=== PATIENT | male | born 1970 | race Caucasian/White ===

== ENCOUNTER 2016-11-23 02:43 | Observation (INO) | payer OTHER ==
[~2016-11-23] VITALS: Ht 167.6 cm; Wt 97.5 kg
[2016-11-23] MEDS ORDERED: NITROGLYCERIN OINT 2% 1GM PACKET EXT ONE ×2 (03:00→06:15)
[2016-11-23] MEDS ORDERED: SODIUM CHLORIDE 0.9% 1000ML 1,000 ML IV ONE (03:00)
[2016-11-23 03:05] LABS: BASO % 0.3 %; BASO ABS # 0.02 K/uL (0-0.2); COMPLETE YES; EOS % 1.2 %; HEMATOCRIT 38.2 % (42-52); IG% 0.4 %; LYMPH ABS # 2.08 K/uL (1.2-3.4); MEAN CELL VOLUME 87.8 fL (80-100); MEAN CORPUSCULAR HEMOGLOBIN 31.3 pg (25-34); MEAN CORPUSCULAR HGB CONC 35.6 g/dl (32-36); MEAN PLATELET VOLUME 10.1 fL (7.4-10.4); MONO % 7.3 %; NEUT % 62.8 %; PLATELET COUNT 280 K/uL (130-400); RED BLOOD COUNT 4.35 M/uL (4.7-6.1); WHITE BLOOD COUNT 7.43 K/uL (4.8-10.8)
[2016-11-23 03:14] LABS: POINT OF CARE TROPONIN I < 0.030 ng/ml (0-0.045)
[2016-11-23 03:25] LABS: BUN/CREATININE RATIO 10.7 (10-20); CALCIUM 8.1 mg/dl (8.5-10.1); CREATININE 0.87 mg/dl (0.60-1.40); POTASSIUM 3.5 mmol/L (3.5-5.1); PROTHROMBIN TIME (PATIENT) 10.7 SECONDS (9.0-12.0)
[2016-11-23 03:36] LABS: ALB/GLOB RATIO 0.9 (0.9-2); CKMB/CK RATIO 0.7 (0-3.0); THYROID STIMULATING HORMONE 4.23 uIu/ml (0.300-4.500)
[2016-11-23] MEDS ORDERED: LISI-461 PO (04:08)
[2016-11-23] MEDS ORDERED: ATOR-22 PO (04:08)
[2016-11-23] MEDS ORDERED: MoRPHine SULFATE 2 MG/ML CARP IV PRN (04:45)
[2016-11-23] MEDS ORDERED: NITROGLYCERIN 0.4 MG SL PER TAB CHARGE SL PRN (04:45)
[2016-11-23] MEDS ORDERED: ALUMINUM/MAGNESIUM/SIMETH (MAALOX MAX) 30 ML UDC PO PRN (04:45)
[2016-11-23] MEDS ORDERED: ACETAMINOPHEN 325 MG TAB PO PRN (04:45)
[2016-11-23] MEDS ORDERED: ONDANSETRON INJ 2 MG/ML 2 ML VIAL IV PRN (04:45)
[2016-11-23] MEDS ORDERED: ZOLPIDEM TARTRATE 5 MG TAB PO PRN (04:45)
[2016-11-23] MEDS ORDERED: POLYETHYLENE (MIRALAX) 17 GM PACK PO PRN (04:45)
[2016-11-23] MEDS ORDERED: MAGNESIUM HYDROXIDE SUSP 30 ML UDC PO PRN (04:45)
[2016-11-23] MEDS ORDERED: IV FLUIDS COMPLETED PRN (05:15)
[2016-11-23 06:10] VITALS: BP 123/72; PULSE 54; TEMP 36.8; O2SAT 95; Ht 167.6 cm; Wt 97.5 kg
--- NOTE | 2016-11-23 06:28 | DIAGNOSTIC IMAGING REPORT ---
CHEST 2 VIEWS ROUTINE CLINICAL HISTORY: Chest pain dyspnea COMPARISON STUDY: No previous studies for comparison. FINDINGS: The bones soft tissues and hemidiaphragms are normal. The cardiomediastinal silhouette is normal. The lungs are clear. The pulmonary vasculature is normal. IMPRESSION: Negative chest. The above report was generated using voice recognition software. It may contain grammatical, syntax or spelling errors. Electronically signed by: Uvaldo Rivera M.D. 11/23/2016 6:27 AM Dictated Date/Time: 11/23/2016 6:27 AM
--- NOTE | 2016-11-23 06:42 | EMERGENCY ROOM VISIT NOTE ---
History First contact with patient: 02:48 Chief Complaint: CHEST PAIN Stated Complaint: CHEST PAIN Nursing Triage Summary: pt brought to main ED from home by ALS. pt reports chest pain/tightness for ~2 hours, reports he got "overheated" and felt some nausea with onset but nausea has resolved at this time. denies sob/cough or recent illness. hx of htn and elevated cholesterol. pt given nitro x3 and [facility] preshopital. pt reports his pain began at 7/10 and has decreased to 3/10 with medication. ALS reports pt's blood pressure decreased with medication. upon assessment, pt alert and oriented x4. breathing regularly and independently. skin warm and dry, color WNL. History of Present Illness The patient is a 46 year old male who presents to the Emergency Room with complaints of central and left-sided chest pain that began about 2 hours prior to arrival. The patient states that he initially had a sharp stabbing sensation in his chest but this became much more severe and turned into a heaviness or tightness. His pain did not radiate, and he rates it a 7/10 at worst. The patient states that he felt very hot and nauseated, and walked over to the air conditioner to cool off. The patient became concerned as his father has an extensive cardiac history including multivessel bypass and multiple MIs. The patient contacted EMS, and the patient has been provided aspirin and nitroglycerin prehospital. Evidently the patient's third dose of nitroglycerin significantly improved his discomfort down to a 3/10. The patient himself has a known history of dyslipidemia and hypertension. He admits that he does not take his medication on a daily basis. He has not had recent fever or chills. No recent travel history. He does not have other complaints. Review of Systems More than 10 systems were reviewed and otherwise negative with the exception of history of present illness. Past Medical/Surgical History Medical Problems: (1) Chest pain Family History Family history of cardiac disease, diabetes, dyslipidemia Social History Smoking Status: Never Smoker Occupation Status: employed (founder and chief executive officer) Current/Historical Medications Scheduled Atorvastatin (Lipitor), 20 MG PO DAILY Lisinopril (Lisinopril), 10 MG PO DAILY Physical Exam Vital Signs Date Time Temp Pulse Resp B/P (MAP) Pulse Ox O2 Delivery O2 Flow Rate FiO2 11/23/16 04:14 64 18 123/83 Room Air 11/23/16 03:45 66 18 130/84 96 Room Air 11/23/16 02:48 36.4 76 18 131/93 94 Room Air 11/23/16 02:48 69 11/23/16 02:48 94 Room Air 11/23/16 02:48 94 Room Air Pain Rating (0-10): 0 Physical Exam VITALS: Vitals are noted on the nurse's note and reviewed by myself. Vital signs stable. GENERAL: Well-developed, well-nourished, white male, who is in no acute distress and resting comfortably. Patient is cooperative with the examination. HEAD: Normocephalic atraumatic. EARS: External ear normal. External auditory canals clear, tympanic membranes pearly orantes without erythema or effusion bilaterally. EYES: Pupils equal round and reactive to light and accommodation. Conjunctivae without injection, sclerae without icterus. Extraocular movements intact. NOSE: Patent, turbinates without inflammation or discharge. MOUTH: Mucous membranes moist. Tonsils are not enlarged. Pharynx without erythema, blood, or exudate. Uvula midline. Airway patent. NECK: Supple without nuchal rigidity. No lymphadenopathy. No thyromegaly. Cervical spine is nontender. HEART: Regular rate and rhythm without murmurs gallops or rubs. LUNGS: Clear to auscultation bilaterally without wheezes, rales or rhonchi. No retractions or accessory muscle use. CHEST: No reproducible chest wall tenderness. No rash or lesions. ABDOMEN: Positive normal bowel sounds x 4. Soft, nontender, without masses or organomegaly. No guarding or rebound tenderness. MUSCULOSKELETAL: No muscle atrophy, erythema, or edema noted. Full range of motion without joint tenderness in all extremities. NEURO: Patient was alert and oriented to person place and time. CN II through XII grossly intact. Medical Decision & Procedures ER Provider Diagnostic Interpretation: CHEST 2 VIEWS ROUTINE CLINICAL HISTORY: Chest pain dyspnea COMPARISON STUDY: No previous studies for comparison. FINDINGS: The bones soft tissues and hemidiaphragms are normal. The cardiomediastinal silhouette is normal. The lungs are clear. The pulmonary vasculature is normal. IMPRESSION: Negative chest. Laboratory Results 11/23/16 02:45 Red Blood Count 4.35, Mean Corpuscular Volume 87.8, Mean Corpuscular Hemoglobin 31.3, Mean Corpuscular Hemoglobin Concent 35.6, Mean Platelet Volume 10.1, Neutrophils (%) (Auto) 62.8, Lymphocytes (%) (Auto) 28.0, Monocytes (%) (Auto) 7.3, Eosinophils (%) (Auto) 1.2, Basophils (%) (Auto) 0.3, Neutrophils # (Auto) 4.67, Lymphocytes # (Auto) 2.08, Monocytes # (Auto) 0.54, Eosinophils # (Auto) 0.09, Basophils # (Auto) 0.02 11/23/16 02:45 Test 11/23/16 02:45 11/23/16 02:55 11/23/16 02:57 White Blood Count 7.43 K/uL (4.8-10.8) Red Blood Count 4.35 M/uL (4.7-6.1) Hemoglobin 13.6 g/dL (14.0-18.0) Hematocrit 38.2 % (42-52) Mean Corpuscular Volume 87.8 fL (80-100) Mean Corpuscular Hemoglobin 31.3 pg (25-34) Mean Corpuscular Hemoglobin Concent 35.6 g/dl (32-36) Platelet Count 280 K/uL (130-400) Mean Platelet Volume 10.1 fL (7.4-10.4) Neutrophils (%) (Auto) 62.8 % Lymphocytes (%) (Auto) 28.0 % Monocytes (%) (Auto) 7.3 % Eosinophils (%) (Auto) 1.2 % Basophils (%) (Auto) 0.3 % Neutrophils # (Auto) 4.67 K/uL (1.4-6.5) Lymphocytes # (Auto) 2.08 K/uL (1.2-3.4) Monocytes # (Auto) 0.54 K/uL (0.11-0.59) Eosinophils # (Auto) 0.09 K/uL (0-0.5) Basophils # (Auto) 0.02 K/uL (0-0.2) RDW Standard Deviation 39.9 fL (36.4-46.3) RDW Coefficient of Variation 12.4 % (11.5-14.5) Immature Granulocyte % (Auto) 0.4 % Immature Granulocyte # (Auto) 0.03 K/uL (0.00-0.02) Prothrombin Time 10.7 SECONDS (9.0-12.0) Prothromb Time International Ratio 1.0 (0.9-1.1) Activated Partial Thromboplast Time 26.9 SECONDS (21.0-31.0) Partial Thromboplastin Ratio 1.0 Anion Gap 8.0 mmol/L (3-11) Est Creatinine Clear Calc Drug Dose 115.6 ml/min Estimated GFR () 120.0 Estimated GFR (Non- 103.5 BUN/Creatinine Ratio 10.7 (10-20) Calcium Level 8.1 mg/dl (8.5-10.1) Total Bilirubin 0.5 mg/dl (0.2-1) Aspartate Amino Transf (AST/SGOT) 24 U/L (15-37) Alanine Aminotransferase (ALT/SGPT) 42 U/L (12-78) Alkaline Phosphatase 91 U/L (45-117) Total Creatine Kinase 102 U/L (39-308) Creatine Kinase MB 0.7 ng/ml (0.5-3.6) Creatine Kinase MB Ratio 0.7 (0-3.0) Total Protein 7.2 gm/dl (6.4-8.2) Albumin 3.5 gm/dl (3.4-5.0) Globulin 3.7 gm/dl (2.5-4.0) Albumin/Globulin Ratio 0.9 (0.9-2) Lipase 154 U/L (73-393) Thyroid Stimulating Hormone (TSH) 4.230 uIu/ml (0.300-4.500) Bedside D-Dimer 317 ng/mlFEU (0-450) Bedside Troponin I < 0.030 ng/ml (0-0.045) Medications Administered Medications (Trade) Dose Ordered Sig/Afshan Route Start Time Stop Time Status Last Admin Dose Admin Nitroglycerin (Nitroglycerin 2% Oint) 1 inch NOW ONCE EXT 11/23/16 03:00 11/23/16 03:01 DC 11/23/16 03:10 1 INCH Sodium Chloride 1,000 ml @ 999 mls/hr Q1H1M ONCE IV 11/23/16 03:00 11/23/16 04:00 DC 11/23/16 03:11 999 MLS/HR ECG Change: Normal sinus rhythm @74bpm Normal ECG No previous ECGs available ED Course Physical exam and history were performed. Nursing notes, EMR, and Medication List were personally reviewed. Patient appears to have chest pain symptoms that began about 2 hours ago. His symptoms did seem to improve with aspirin and nitroglycerin prehospital. IV access was established and labs were obtained. EKG is as above and was normal sinus rhythm without acute ST elevation. Chest x-ray was performed. Nitroglycerin paste was placed. The patient was placed on a machine operator packaging. The patient's blood work is as above and was reviewed. He does not have significantly elevated white blood cell count, gross anemia, bandemia, or significant electrolyte imbalance. Lipase and transaminases are nondiagnostic. Troponin and d-dimer 1 are both negative. The patient remained in normal sinus rhythm while on the machine operator packaging. His chest x-ray does not show acute findings. Overall the patient does not appear stable for discharge home. His family history is quite condemning and he did have relief of his chest pain with nitroglycerin. The case was discussed with the on-call hospitalist who agreed to evaluate the patient here in the department. Please see their dictation for further patient course, plan, and disposition. The chart was completed utilizing [employer] Speech Voice Recognition Software. Grammatical errors, random word insertions, pronoun errors, and incomplete sentences are an occasional consequence of this system due to software limitations, ambient noise, and hardware issues. Any formal questions or concerns about the content, text, or information contained within the body of this dictation should be directly addressed to the provider for clarification. . Medical Decision Differential diagnosis includes, but is not limited to: Myocardial infarction, dysrhythmia, pericarditis, pneumothorax, aortic aneurysm/dissection, DVT/PE, anxiety, GERD, PUD, electrolyte imbalance, thyroid disorder, pneumonia, bronchitis, pancreatitis, and others Medication Reconcilliation Current Medication List: was personally reviewed by me Blood Pressure Screening Blood pressure disposition: Elevated BP felt to be situational Impression Primary Impression: Chest pain Departure Information Dispostion Home / Self-Care Condition FAIR Referrals No Doctor, Assigned (PCP) Forms HOME CARE DOCUMENTATION FORM, IMPORTANT VISIT INFORMATION Patient Instructions [facility] Problem Qualifiers Primary Impression: Chest pain Chest pain type: unspecified Qualified Codes: R07.9 - Chest pain, unspecified
--- NOTE | 2016-11-23 07:37 | HISTORY & PHYSICAL EXAMINATION ---
DATE OF ADMISSION: 11/23/2016 REASON FOR ADMISSION: Chest pain. HISTORY OF PRESENT ILLNESS: This is a 46-year-old male with a history of hypertension and hyperlipidemia. He developed central chest pain earlier in the morning. This was accompanied by nausea, diaphoresis and shortness of breath. He denies any vomiting or any radiation of the pain. The pain lasted several minutes and then recurred, at which point he decided to come to the hospital. The patient was relieved with sublingual NTG after 2 doses. Initial troponin and EKG are within normal limits. PAST MEDICAL HISTORY: 1. Hypertension. 2. Hyperlipidemia. 3. Ten years ago, the patient had a cardiac catheterization, which was normal. MEDICATIONS: 1. Lisinopril 10 mg daily. 2. Lipitor 20 mg daily. SOCIAL HISTORY: The patient does not drink or smoke. He works as a correctional office in a intermediate. FAMILY HISTORY: The patient's father had an [place] in his 60s. REVIEW OF SYSTEMS: GENERAL: No fevers or rigors described. CARDIOVASCULAR: Positive for chest pain as above. RESPIRATORY: Shortness of breath accompanying chest pain. GASTROINTESTINAL: Denies nausea, vomiting, constipation or diarrhea. All other systems reviewed and negative. PHYSICAL EXAMINATION: VITAL SIGNS: Blood pressure is 120/80, heart rate 64, respirations 16, afebrile, and satting 96% on room air. GENERAL: This is an overweight middle-aged male. He is awake, alert, and oriented x3, in no distress. HEAD AND NECK: No JVD, bruits, thrush or icterus. HEART: S1 and S2, regular. No audible murmurs. LUNGS: Clear to auscultation bilaterally. ABDOMEN: Nontender and nondistended. Bowel sounds are present. EXTREMITIES: Show no clubbing, cyanosis or edema. NEUROLOGICAL: He is ambulatory, maintains his coordination, and does not exhibit any focal deficits. SKIN: Negative for rashes or ulcers. LABORATORY DATA: White count 7.4, hemoglobin 13.6, and platelets 280. Sodium 142, potassium 3.5, chloride 108, CO2 of 26, BUN 9, creatinine 0.9, and glucose 108. Troponin less than 0.030. EKG normal sinus rhythm with no acute ST elevations or depressions. ASSESSMENT AND PLAN: This is a 46-year-old male with a history of hypertension, hyperlipidemia and a family history of CAD. He presents with central chest pain accompanied by shortness of breath, diaphoresis and nausea. The patient is admitted with the followin. Chest pain. The patient will be provided with NTG and/or morphine p.r.n. for chest pain. He has been placed on aspirin and low-dose Lovenox. He will be placed on an increased dose of statin. We will monitor him on telemetry and obtain serial cardia enzymes. A stress test can be scheduled as an inpatient or if his symptoms do not recur and his troponins and EKG remain unchanged, outpatient stress testing can be considered. 2. Hypertension. We will continue lisinopril as described. 3. Hyperlipidemia. We have increased the dose of statin as above. The patient is a full code. Total time for this admit including chart review, discussion with the ER physician, review of labs, imaging, EKG and available records, 28 minutes.
[2016-11-23 08:00] VITALS: O2SAT 95
[2016-11-23] MEDS ORDERED: ATORVASTATIN 40 MG TAB PO SCH (09:00)
[2016-11-23] MEDS: ENOXAPARIN 40 MG/0.4 ML SYR SC SCH ×2 (09:00→10:57)
[2016-11-23] MEDS ORDERED: ASPIRIN 325 MG ECTAB PO SCH (09:00)
[2016-11-23] MEDS ORDERED: LISINOPRIL 10 MG TAB PO SCH (09:00)
[2016-11-23] MEDS ORDERED: PERFLUTREN LIPID MICROSPHERE (DEFINITY) IV ONE (10:08)
[2016-11-23 11:05] VITALS: BP 137/87; PULSE 73; TEMP 36.7; O2SAT 95
--- NOTE | 2016-11-23 11:31 | Discharge Instructions ---
Discharge Instructions Date of Service Nov 23, 2016. Admission Reason for Admission: Chest Pain Discharge Discharge Diagnosis / Problem: Precordial chest pain Discharge Goals Goal(s): Decrease discomfort, Diagnostic testing Activity Recommendations Activity Limitations: resume your previous activity . Instructions / Follow-Up Instructions / Follow-Up You were admitted to the hospital because of chest pain, nausea, and diaphoresis - an acute cardiac event was ruled out through negative cardiac enzymes (blood markers of heart muscle injury) and a stress echocardiogram. Please follow-up with your PCP for further evaluation and management of symptoms. You were concerned about a recent bite mi (possibly tick vs spider), fatigue, and multiple areas of redness. A Lyme screen was completed and was negative. However, due to your ongoing signs/symptoms, you have been placed on Doxycycline 100 mg twice per day x14 days. Please eat when taking this medication. Due to your history of hiatal hernia and recent symptoms of chest pain, please resume taking Nexium. It is recommended you follow-up with your PCP for further evaluation, care, and management. Please discuss with your PCP about following up with a tree killer for possible EGD (scope to evaluate your hiatal hernia). Additionally, it is recommended you discuss with your PCP about a sleep study due to excessive snoring witnessed during your hospitalization. Please follow-up with your PCP within 5-7 days Please follow-up/keep all of your subspecialty appointments Home Care: * Take your medications exactly as directed. Don't skip doses. * If you are having chest pain, call 911 for an ambulance. Do NOT drive yourself to the hospital. * Ask your family members to learn CPR. * Learn to take your own blood pressure and pulse. Keep a record of your results. Ask your doctor when you should seek emergency medical attention. He or she will tell you which blood pressure reading is dangerous. Lifestyle Changes: * Maintain a healthy weight. Get help to lose any extra pounds. * Cut back on salt. * Limit canned, dried, packaged, and fast foods. * Don't add salt to your food. * Season foods with herbs instead of salt when you cook. * Break the smoking habit. Enroll in a stop-smoking program to improve your chances of success. * Limit fatty foods. * Ask your doctor about having your lipid levels checked regularly. * Build up your activity according to your doctor's recommendation. * Ask your doctor when it's okay to resume sexual activity. * Tell your doctor about any erectile dysfunction (ED) medication you are taking. Some ED medications are not safe if you take certain heart medications. * Try to manage stress. Follow Up: It is important for you to keep your follow up appointments with your medical provider. Current Hospital Diet Patient's current hospital diet: AHA Diet (Heart Healthy) Discharge Diet Recommended Diet: AHA Diet (Heart Healthy) Procedures Procedures Performed: Chest x-ray, stress echocardiogram Pending Studies Studies pending at discharge: no Medical Emergencies . Who to Call and When: Medical Emergencies: If at any time you feel your situation is an emergency, please call 911 immediately. Call 911 immediately or go to your nearest Emergency Room if you experience any of the following: Warning Signs and Symptoms of a Heart Attack * Chest pain that is not relieved by medication * Shortness of breath . Non-Emergent Contact Non-Emergency issues call your: Primary Care Provider . . "Provider Documentation" section prepared by Olya HARPER - . Attending Attestation: Pt seen/examined, chart reviewed, care plan d/w LEROY Peguero. I agree w/ the spencer components of her discharge instructions documentation. Perico Khanna MD [facility] Core Measures Reason no ASA as I/P: Treatment provided - N/A Reason no ASA at D/C: Treatment not indicated Reason no statin as I/P: Treatment provided - N/A Reason no statin at D/C: Treatment provided - N/A VTE Core Measure Inpt VTE Proph given/why not?: Enoxaparin (Lovenox)SQ
[2016-11-23 12:00] VITALS: O2SAT 95
--- NOTE | 2016-11-23 12:21 | Discharge Summary ---
Discharge Summary Date of Service Nov 23, 2016. (Olya Peguero, DOMINIC) Discharge Summary Admission Date: Nov 23, 2016 at 04:42 Discharge Date: Nov 23, 2016 Discharge Disposition: Home Principal Diagnosis: Precordial chest pain: Problems/Secondary Diagnoses: ?tick/spider bite, fatigued, rashes HTN Hyperlipidemia Procedures: CHEST 2 VIEWS ROUTINE CLINICAL HISTORY: Chest pain dyspnea COMPARISON STUDY: No previous studies for comparison. FINDINGS: The bones soft tissues and hemidiaphragms are normal. The cardiomediastinal silhouette is normal. The lungs are clear. The pulmonary vasculature is normal. IMPRESSION: Negative chest. The above report was generated using voice recognition software. It may contain grammatical, syntax or spelling errors. Electronically signed by: Uvaldo Rivera M.D. 11/23/2016 6:27 AM Dictated Date/Time: 11/23/2016 6:27 AM The status of this report is Signed. Draft = Not yet reviewed or approved by Radiologist. Signed = Reviewed and approved by Radiologist. STRESS ECHOCARDIOGRAM: Interpretation Summary * Name: REYNALDO THOMASON Study Date: 11/23/2016 08:26 AM BP: 115/77 mmHg * Patient Location: [facility]\\31\S\1 HR: 60 * : 1970 (M/d/yyyy) Gender: Male Height: 66 in * Age: 46 yrs Ethnicity: [place] Weight: 214 lb * Ordering Physician: Perico Khanna * Referring Physician: Self, Referred * Performed By: Krissy Swann RCS * * Reason For Study: CHEST PAIN * BSA: 2.1 m2 * -- Conclusions -- * 1. Normal stress echocardiogram at 11.7 METS and a peak heart rate of 80 6 % predicted maximum. * 2. No exercise-induced chest pain. * 3. No EKG changes. * 4. Baseline echocardiogram notes normal left ventricular systolic function and mild left ventricular hypertrophy. Procedure Details * ECHOEX, CPT #[id number] * ECHO COLOR FLOW, CPT #[id number] * ECHO DOPPLER, CPT #[id number] * A contrast injection of Definity was performed to improve assessment of LV function. * Contrast was injected into an intravenous site in the left arm. * One vial of Definity ultrasound contrast was diluted in normal saline to a total volume of 10 ml. A total of '4' ml of solution was administered during imaging. * Lot # [id number] of Definity utilized for procedure. * Expiration date DEC 18. * The attending nurse who injected the contrast agent was SOO MUHAMMAD RN. Left Ventricle * The left ventricle is normal in size. * There is mild concentric left ventricular hypertrophy. * Left ventricular systolic function is normal. * Resting wall motion: Normal. Stress wall motion: Appropriate increase in Left ventricular systolic function and decrease in cavity size. No stress induced segmental wall motion abnormalities. Right Ventricle * The right ventricle is not well visualized. * The right ventricular systolic function is normal as assessed by tricuspid annular plane systolic excursion (TAPSE) (normal >1.5 cm). Atria * The left atrial size is normal. * Right atrial size is normal. * There is no evidence of atrial septal defect, but resolution does not allow assessment for a patent foramen ovale. Mitral Valve * The mitral valve is grossly normal. * There is no mitral valve stenosis. * Significant mitral regurgitation is absent. Tricuspid Valve * The tricuspid valve is not well visualized, but is grossly normal. * There is no tricuspid stenosis. * Significant tricuspid regurgitation is absent. Aortic Valve * The aortic valve is normal in structure and function. * No hemodynamically significant valvular aortic stenosis. * No aortic regurgitation is present. Pulmonic Valve * The pulmonary valve is inadequately visualized, but the Doppler data is adequate for interpretation. Great Vessels * The aortic root is normal size. * The pulmonary is not well visualized. Pericardium * There is no pericardial effusion. Stress Parameters * Normal baseline electrocardiogram. * The stress ECG response was normal * The stress portion of this study was personally supervised by the undersigned interpreting physician. * Rest heart rate was '60' BPM. * Rest blood pressure was '115/77' * Maximum heart rate achieved was 151 bpm. * Maximum heart rate was 86 % of maximum age-predicted heart rate. * Maximum blood pressure was '179/80' * Total exercise time was '10:01' * Maximum exercise MET level achieved was '11.70' METS * Maximum treadmill speed was '4.10' miles per hour. * Maximum treadmill elevation was '16.00'% grade. (Olya Peguero, PA-C) Problems/Secondary Diagnoses: hiatal hernia (Perico Khanna MD) Medication Reconciliation New Medications: Doxycycline Hyclate (Doxycycline Hyclate) 100 Mg Cap 100 MG PO BID for 14 Days, #28 CAP Esomeprazole Magnesium (Nexium) 20 Mg Cap 20 MG PO DAILY for 30 Days, #30 CAP Continued Medications: Atorvastatin (Lipitor) 20 Mg Tab 20 MG PO DAILY, TAB Lisinopril (Lisinopril) 10 Mg Tab 10 MG PO DAILY Discharge Exam Review of Systems: Constitutional: + fatigue, No fever, No chills, No sweats, No weakness Respiratory: No cough, No shortness of breath, No hemoptysis Cardiovascular: No chest pain, No edema, No palpitations Abdomen: No pain, No nausea, No vomiting, No diarrhea, No constipation Musculoskeletal: + joint pain (chronic ), No muscle pain, No swelling, No calf pain Neurologic: No weakness, No numbness/tingling Psychiatric: No depression symptoms, No anxiety Hematologic / Lymphatic: No abnormal bleeding/bruising Integumentary: + rash (multiple erythemic areas noted to R foot and R chest wall- have since subsided ), No itch, No new/changing skin lesions Physical Exam: General Appearance: no apparent distress, + obese Eyes: normal inspection, PERRL ENT: hearing grossly normal Neck: supple Respiratory/Chest: lungs clear, no respiratory distress, no accessory muscle use Cardiovascular: regular rate, rhythm Abdomen / GI: normal bowel sounds, non tender, soft Extremities: no calf tenderness, no pedal edema Neurologic/Psychiatric: alert, normal mood/affect, oriented x 3 Skin: normal color, warm/dry, no rash (Olya Pegureo, PA-C) Hospital Course Admission H&P: This is a 46-year-old male with a history of hypertension and hyperlipidemia. He developed central chest pain earlier in the morning. This was accompanied by nausea, diaphoresis and shortness of breath. He denies any vomiting or any radiation of the pain. The pain lasted several minutes and then recurred, at which point he decided to come to the hospital. The patient was relieved with sublingual NTG after 2 doses. Initial troponin and EKG are within normal limits. PHYSICAL EXAMINATION: VITAL SIGNS: Blood pressure is 120/80, heart rate 64, respirations 16, afebrile, and satting 96% on room air. GENERAL: This is an overweight middle-aged male. He is awake, alert, and oriented x3, in no distress. HEAD AND NECK: No JVD, bruits, thrush or icterus. HEART: S1 and S2, regular. No audible murmurs. LUNGS: Clear to auscultation bilaterally. ABDOMEN: Nontender and nondistended. Bowel sounds are present. EXTREMITIES: Show no clubbing, cyanosis or edema. NEUROLOGICAL: He is ambulatory, maintains his coordination, and does not exhibit any focal deficits. SKIN: Negative for rashes or ulcers. LABORATORY DATA: White count 7.4, hemoglobin 13.6, and platelets 280. Sodium 142, potassium 3.5, chloride 108, CO2 of 26, BUN 9, creatinine 0.9, and glucose 108. Troponin less than 0.030. EKG normal sinus rhythm with no acute ST elevations or depressions. Precordial chest pain: - Admitted to [facility] for cardiac monitoring- no acute events - Cardiac enzymes trended- negative - NTG and/or Morphine PRN for chest pain - ASA 325 mg daily - TSH- WNL - Stress ECHO- negative for ischemia ?tick/spider bite, fatigued, rashes: - Lyme screen negative - Due to ongoing s/s, will treat patient with Doxycycline 100 mg BID x14 days HTN- STABLE: Continue Lisinopril 10 mg daily Hyperlipidemia: Continue Atorvastatin 20 mg daily h/o hiatal hernia: Has taken Nexium in the past, but has not in over 6 months- recommend restarting Nexium. Recommend PCP f/u and possibly GI for EGD and further eval. DVT Prophylaxis: Lovenox Code Status: LEVEL I, FULL Dispo: Discharge to home Total Time Spent: Greater than 30 minutes This includes examination of the patient, discharge planning, medication reconciliation, and communication with other providers. (Olya Peguero ., PA-C) Attending Attestation: Pt seen/examined, chart reviewed, care plan d/w LEROY Peguero. I agree w/ the spencer components of her discharge documentation. 46yo male with history of HTN and hyperlipidemia who presented with chest pain. Full cardiac evaluation was negative (telemetry, troponin x 3, stress echocardiogram). Had negative heart catheterization about 10 years ago at [facility]. Pt with history of large hiatal hernia and frequent FRANK symptoms. Given the negative cardiac work-up this may have been GERD/esophageal spasm. Recommended f/u with PCP and GI along with reinstitution of PPI. Also with tick bite(s) about 1 month ago with fatigue since then. Despite negative lyme's testing elected to Rx with doxy 100 BID x 2 weeks. Pt with suspected GINNY - sleep study recommended. Discharge exam - gen - NAD neck - no JVD, large neck size heart - RRR, s1, s2, no murmur chest - no reproducible chest wall pain lungs - CTA b/l abd - soft, NT, ND, BS+, NO HSM ext - no edema Perico Khanna MD (Perico Khanna MD) Discharge Instructions Please refer to the electronic Patient Visit Report (Discharge Instructions) for additional information. (Olya Peguero ., PA-C) Follow-Up Please follow-up with your PCP within 5-7 days Please follow-up/keep all of your subspecialty appointments (Olya Peguero, PA-C) Additional Copies To Michael Law D.O.
[2016-11-23 13:14] LABS: LYME DISEASE AB IGG NEG (NEG)
[2016-11-23 13:18] LABS: LYME DISEASE AB IGM NEG (NEG)
[2016-11-23] MEDS ORDERED: DXY100 PO (13:25)
[2016-11-23] MEDS ORDERED: ESOM20CA PO (13:32)
--- NOTE | 2016-11-23 15:20 | EXERCISE STRESS ECHO ---
*NOTICE TO RECEIVING CONSTITUTION PARTY AGENCY This information is strictly Confidential and protected under [place] law. [place] law prohibits you from making any further disclosure of this information unless further disclosure is expressly permitted by the written consent of the person to whom it pertains or is authorized by law. A general authorization for the release of medical or other information is not sufficient for this purpose. Hospital accepts no responsibility if the information is made available to any other person, INCLUDING THE PATIENT. Interpretation Summary * Name: REYNALDO THOMASON Study Date: 11/23/2016 08:26 AM BP: 115/77 mmHg * Patient Location: .2T\S\S231\S\1 HR: 60 * : 1970 (M/d/yyyy) Gender: Male Height: 66 in * Age: 46 yrs Ethnicity: [place] Weight: 214 lb * Ordering Physician: Perico Khanna * Referring Physician: Self, Referred * Performed By: Krissy Swann RCS * * Reason For Study: CHEST PAIN * BSA: 2.1 m2 * -- Conclusions -- * 1. Normal stress echocardiogram at 11.7 METS and a peak heart rate of 80 6% predicted maximum. * 2. No exercise-induced chest pain. * 3. No EKG changes. * 4. Baseline echocardiogram notes normal left ventricular systolic function and mild left ventricular hypertrophy. Procedure Details * ECHOEX, CPT #[id number] * ECHO COLOR FLOW, CPT #[id number] * ECHO DOPPLER, CPT #[id number] * A contrast injection of Definity was performed to improve assessment of LV function. * Contrast was injected into an intravenous site in the left arm. * One vial of Definity ultrasound contrast was diluted in normal saline to a total volume of 10 ml. A total of '4' ml of solution was administered during imaging. * Lot # [id number] of Definity utilized for procedure. * Expiration date DEC 18. * The attending nurse who injected the contrast agent was SOO MUHAMMAD RN. Left Ventricle * The left ventricle is normal in size. * There is mild concentric left ventricular hypertrophy. * Left ventricular systolic function is normal. * Resting wall motion: Normal. Stress wall motion: Appropriate increase in Left ventricular systolic function and decrease in cavity size. No stress induced segmental wall motion abnormalities. Right Ventricle * The right ventricle is not well visualized. * The right ventricular systolic function is normal as assessed by tricuspid annular plane systolic excursion (TAPSE) (normal >1.5 cm). Atria * The left atrial size is normal. * Right atrial size is normal. * There is no evidence of atrial septal defect, but resolution does not allow assessment for a patent foramen ovale. Mitral Valve * The mitral valve is grossly normal. * There is no mitral valve stenosis. * Significant mitral regurgitation is absent. Tricuspid Valve * The tricuspid valve is not well visualized, but is grossly normal. * There is no tricuspid stenosis. * Significant tricuspid regurgitation is absent. Aortic Valve * The aortic valve is normal in structure and function. * No hemodynamically significant valvular aortic stenosis. * No aortic regurgitation is present. Pulmonic Valve * The pulmonary valve is inadequately visualized, but the Doppler data is adequate for interpretation. Great Vessels * The aortic root is normal size. * The pulmonary is not well visualized. Pericardium * There is no pericardial effusion. Stress Parameters * Normal baseline electrocardiogram. * The stress ECG response was normal * The stress portion of this study was personally supervised by the undersigned interpreting physician. * Rest heart rate was '60' BPM. * Rest blood pressure was '115/77' * Maximum heart rate achieved was 151 bpm. * Maximum heart rate was 86 % of maximum age-predicted heart rate. * Maximum blood pressure was '179/80' * Total exercise time was '10:01' * Maximum exercise MET level achieved was '11.70' METS * Maximum treadmill speed was '4.10' miles per hour. * Maximum treadmill elevation was '16.00'% grade. MMode 2D Measurements and Calculations IVSd 1.5 cm IVSs 1.8 cm LVIDd 4.5 cm LVIDs 2.8 cm LVPWd 1.3 cm LVPWs 1.6 cm IVS/LVPW 1.1 FS 36.6 % EDV(Teich) 90.5 ml ESV(Teich) 30.3 ml EF(Teich) 66.5 % EDV(cubed) 88.6 ml ESV(cubed) 22.6 ml EF(cubed) 74.5 % % IVS thick 22.4 % % LVPW thick 20.5 % LV mass(C)d 244.3 grams LV mass(C)dI 118.7 grams/m\S\2 LV mass(C)s 182.2 grams LV mass(C)sI 88.5 grams/m\S\2 SV(Teich) 60.2 ml SI(Teich) 29.2 ml/m\S\2 SV(cubed) 66.0 ml SI(cubed) 32.1 ml/m\S\2 Ao root diam 3.2 cm Ao root area 7.9 cm\S\2 ACS 2.3 cm LA dimension 3.4 cm LA/Ao 1.1 LVOT diam 2.0 cm LVOT area 3.1 cm\S\2 Doppler Measurements and Calculations MV E max martha 84.1 cm/sec MV A max martha 32.4 cm/sec MV E/A 2.6 MV P1/2t max martha 90.6 cm/sec MV P1/2t 55.0 msec MVA(P1/2t) 4.0 cm\S\2 MV dec slope 483.1 cm/sec\S\2 MV dec time 0.23 sec Ao V2 max 98.9 cm/sec Ao max PG 3.9 mmHg Ao max PG (full) 1.5 mmHg JINNY(V,A) 2.4 cm\S\2 JINNY(V,D) 2.4 cm\S\2 LV V1 max PG 2.4 mmHg LV V1 max 77.5 cm/sec PA V2 max 98.9 cm/sec PA max PG 3.9 mmHg PI max martha 156.5 cm/sec PI max PG 9.8 mmHg PI dec slope 97.3 cm/sec\S\2 PI P1/2t 471.4 msec TR max martha 213.0 cm/sec
[2016-11-23 15:24] VITALS: BP 131/84; PULSE 62; TEMP 36.9; O2SAT 97
[2016-11-23 15:47] VITALS: BP 131/84; PULSE 62; TEMP 36.9; O2SAT 97
== END 2016-11-23 16:13 | disposition home or self-care (01) ==
LOC: EDBD 02:43 → C.EDB 02:47 → C.2T 04:42 → ENRESERV 05:12
PROVIDERS: ADMIT Internal Medicine; ATTEND Internal Medicine
DX: R07.2 Precordial pain (principal); I10 Essential (primary) hypertension; E78.5 Hyperlipidemia, unspecified; K44.9 Diaphragmatic hernia without obstruction or gangrene; Z83.3 Family history of diabetes mellitus; Z82.49 Family history of ischemic heart disease and other diseases of the circulatory system; Z79.899 Other long term (current) drug therapy